=== PATIENT | female | born 1965 | race Caucasian/White ===

== ENCOUNTER 2019-11-08 17:52 | Emergency (ER) | payer OTHER ==
[2019-11-08 18:10] VITALS: BP 146/103; PULSE 68; TEMP 98.3; BMI 40.3
--- NOTE | 2019-11-08 18:10 | PDOC ---
Rapid Medical Evaluation Time Seen by Provider: 11/08/19 18:04 Medical Evaluation: Allergies Allergy/AdvReac Type Severity Reaction Status Date / Time No Known Drug Allergies Allergy Verified 11/08/19 18:04 11/08/19 18:04 Pt presents for swelling to the L side of her face for two days. She states she has pain in her L upper incisor and now she feels swelling and a ball under her L eye. Exam: induration noted to the L cheek. Obvious dental decay Orders: Nothing Pt to proceed to the ER evaluation Discharge Disposition - Diagnosis Pain, dental - Referrals - Patient Instructions - Post Discharge Activity
--- NOTE | 2019-11-08 18:32 | PDOC ---
History of Present Illness - General Chief Complaint: Toothache Stated Complaint: SWOLLEN FACE Time Seen by Provider: 11/08/19 18:04 - History of Present Illness Initial Comments: 11/08/19 18:30 54-year-old female denies comorbidities presents for evaluation of left-sided dental pain left upper anterior incisor x5 days no systemic symptoms Past History - Past Medical History Allergies/Adverse Reactions: Allergies Allergy/AdvReac Type Severity Reaction Status Date / Time No Known Drug Allergies Allergy Verified 11/08/19 18:04 Home Medications: Ambulatory Orders Albuterol Sulfate Inhaler - [Ventolin HFA Inhaler -] 1 - 2 inh IH BID 01/27/13 Budesonide/Formeterol Fumarate [SYMBICORT 160/4.5mcg -] 2 inh IH BID 01/27/13 Phenazopyridine HCl [Pyridium] 200 mg PO TID #6 tablet 05/25/13 Bupropion HCl [Wellbutrin -] 100 mg PO BID 08/07/16 Sertraline HCl [Zoloft] 100 mg PO AM 08/07/16 Amoxicillin - [Amoxicillin 500mg Capsule -] 500 mg PO TID #21 capsule 11/08/19 Asthma: Yes Cancer: Yes (BREAST CA RIGHT) COPD: Yes - Psycho Social/Smoking Cessation Hx Smoking Status: Yes Smoking History: Current every day smoker Have you smoked in the past 12 months: Yes Number of Cigarettes Smoked Daily: 2 Information on smoking cessation initiated: Yes 'Breaking Loose' booklet given: 01/27/13 Hx Alcohol Use: Yes Drug/Substance Use Hx: No Substance Use Type: None Review of Systems - Review of Systems Constitutional: No: Fever HEENTM: Yes: See HPI, Dental Problems *Physical Exam - Vital Signs Last Vital Signs Temp Pulse Resp BP Pulse Ox 98.3 F 68 18 146/103 H 97 11/08/19 18:04 11/08/19 18:04 11/08/19 18:04 11/08/19 18:04 11/08/19 18:04 - Physical Exam 11/08/19 18:30 Widespread dental decay left upper anterior incisor tooth is broken normal color and temperature of the gingiva without areas of fluctuance or erythema Medical Decision Making - Medical Decision Making 11/08/19 18:30 We will treat for pain in the emergency room follow-up with urgent care dental amoxicillin prescribed Discharge - Discharge Information Problems reviewed: Yes Clinical Impression/Diagnosis: Pain, dental Condition: Stable Disposition: HOME - Admission No - Additional Discharge Information Prescriptions: Amoxicillin - [Amoxicillin 500mg Capsule -] 500 mg PO TID #21 capsule - Follow up/Referral Referrals: Cameron Harris MD [Primary Care Provider] - [facility] [Outside] - Patient Discharge Instructions Additional Instructions: Please take the antibiotic as directed. Tylenol and Motrin as directed for pain. Without fail follow-up with urgent care dental either today or tomorrow. You do not need an appointment. Please take the antibiotics as directed and return to the emergency room should symptoms worsen. - Post Discharge Activity
== END 2019-11-08 18:32 | disposition home or self-care (01) ==
LOC: JERFT 17:52
DX: K08.89 Other specified disorders of teeth and supporting structures (principal); J44.9 Chronic obstructive pulmonary disease, unspecified; J45.998 Other asthma; Z85.3 Personal history of malignant neoplasm of breast; F17.210 Nicotine dependence, cigarettes, uncomplicated
CPT/HCPCS: 99283-25

== ENCOUNTER 2020-06-06 13:22 | Emergency (ER) | payer OTHER ==
[2020-06-06] MEDS ORDERED: ACETAMINOPHEN 1000 MG/100 ML VIAL (NON FORMULARY) IVPB ONE (13:29)
--- NOTE | 2020-06-06 13:33 | PDOC ---
Rapid Medical Evaluation Time Seen by Provider: 06/06/20 13:26 Medical Evaluation: Allergies Allergy/AdvReac Type Severity Reaction Status Date / Time No Known Drug Allergies Allergy Verified 11/08/19 18:04 06/06/20 13:31 CC: abd pain x 3 weeks , bloating, constipation, hx breast ca and diverticulosis, no other complaints except decreased solid intake Exam: lower abd tenderness, vss Plan: labs urine, ct Discharge Disposition - Diagnosis Abdominal pain - Referrals Referrals: Cameron Harris MD [Primary Care Provider] - - Patient Instructions - Post Discharge Activity
[2020-06-06] MEDS ORDERED: ACETAMINOPHEN INJECTION 100 ML IVPB ONE (14:02)
[2020-06-06 14:20] VITALS: TEMP 98.3; BMI 42.3
[2020-06-06 14:28] LABS: BASO % 1.2 % (0-2.0); HEMATOCRIT 46.1 % (32.4-45.2); HEMOGLOBIN 15.5 GM/dL (10.7-15.3); LYMPH % 19.7 % (8-40); MCH 30.6 pg (25.7-33.7); MCHC 33.6 g/dl (32.0-36.0); MEAN PLT VOLUME 10.5 fl (7.5-11.1); MONO % 7.3 % (3.8-10.2); NEUT % 70.8 % (42.8-82.8); PLATELET COUNT 194 K/MM3 (134-434); RBC 5.07 M/mm3 (3.60-5.2); RDW 13.6 % (11.6-15.6); WHITE BLOOD COUNT 12.5 K/mm3 (4.0-10.0)
[2020-06-06 14:29] LABS: PH,URINE 5.5 (5.0-8.0); URINE APPEARANCE CLEAR; URINE BILIRUBIN NEGATIVE (NEGATIVE); URINE COLOR YELLOW; URINE GLUCOSE (UA) NEGATIVE (NEGATIVE); URINE KETONE NEGATIVE (NEGATIVE); URINE LEUK ESTERASE NEGATIVE (NEGATIVE); URINE NITRITE NEGATIVE (NEGATIVE); URINE PROTEIN NEGATIVE (NEGATIVE)
--- NOTE | 2020-06-06 14:44 | PDOC ---
History of Present Illness - General Chief Complaint: Pain Stated Complaint: LOWER ABD PAIN,BLOATING Time Seen by Provider: 06/06/20 13:26 History Source: Patient, Old Records Exam Limitations: No Limitations - History of Present Illness Initial Comments: 06/06/20 14:39 Micheline Cherry is a 63F with PMH breast CA in remission since 2012 s/p chemo/R mastectomy, GERD, dental infections, diverticulitis, COPD, presenting with abdominal cramping and bloating. Has been feeling abdominal bloating and lower abdominal cramping for a week with intermittent nausea without vomiting and decreased PO intake. Tolerating PO, ate a few plates of poutine earlier this week. Daily omeprazole. Fever last night. No constipation, having BM, last today, non-bloody, no diarrhea, NBNB stools. Has had colonoscopy a few years ago with diverticula. Has had diverticulitis before with fever and diarrhea but did not get treated, says it went away on its own. No prior abd surgeries. Had tooth extraction last month, completed course of Abx that caused diarrhea that has since resolved. Diet of mostly soft spaghetti due to tooth sensitivity. Denies urinary symptoms. Denies chest pain, SOB, dizziness, weakness. Smokes 1 pack cigarettes every 2 days, no alcohol/drugs. NKDA. Past History - Medical History Allergies/Adverse Reactions: Allergies Allergy/AdvReac Type Severity Reaction Status Date / Time No Known Drug Allergies Allergy Verified 11/08/19 18:04 Home Medications: Ambulatory Orders Albuterol Sulfate Inhaler - [Ventolin HFA Inhaler -] 1 - 2 inh IH BID 01/27/13 Budesonide/Formeterol Fumarate [SYMBICORT 160/4.5mcg -] 2 inh IH BID 01/27/13 Phenazopyridine HCl [Pyridium] 200 mg PO TID #6 tablet 05/25/13 Bupropion HCl [Wellbutrin -] 100 mg PO BID 08/07/16 Sertraline HCl [Zoloft] 100 mg PO AM 08/07/16 Amoxicillin - [Amoxicillin 500mg Capsule -] 500 mg PO TID #21 capsule 11/08/19 Ciprofloxacin [Cipro -] 500 mg PO Q12H #14 tablet 06/06/20 metroNIDAZOLE [Flagyl -] 500 mg PO TID #21 tablet 09/16/20 Asthma: Yes Cancer: Yes (BREAST CA RIGHT) COPD: Yes - Reproductive History Is Patient Now?: No - Immunization History Immunization Up to Date: No - Psycho-Social/Smoking History Smoking Status: Yes Smoking History: Current every day smoker Have you smoked in the past 12 months: Yes Number of Cigarettes Smoked Daily: 8 Information on smoking cessation initiated: Yes 'Breaking Loose' booklet given: 01/27/13 - Substance Abuse Hx (Audit-C & DAST Scrn) How often the patient has a drink containing alcohol: Never Score: In Men: 4 or > Positive; In Women: 3 or > Positive: 0 Screen Result (Pos requires Nsg. Audit-10AR): Negative In the last yr the pt used illegal drug/Rx for NonMed reason: No Score: Yes response is considered Positive: 0 Screen Result (Positive result requires Nsg. DAST-10): Negative Review of Systems - Review of Systems Able to Perform ROS?: Yes Constitutional: Yes: Fever HEENTM: No: Symptoms Reported Respiratory: No: Cough, Shortness of Breath, SOB with Exertion, SOB at Rest, Stridor, Wheezing Cardiac (ROS): No: Chest Pain, Irregular Heart Rate, Lightheadedness, Palpitations, Syncope ABD/GI: Yes: Nausea, Poor Appetite, Abdominal cramping. No: Constipated, Monika rrhea, Poor Fluid Intake, Vomiting : No: Symptoms Reported Musculoskeletal: No: Symptoms Reported Integumentary: No: Symptoms Reported Neurological: No: Symptoms reported Endocrine: No: Symptoms Reported Hematologic/Lymphatic: No: Symptoms Reported All Other Systems: Reviewed and Negative *Physical Exam - Vital Signs Last Vital Signs Temp Pulse Resp BP Pulse Ox 98.3 F 87 20 139/73 98 06/06/20 14:00 06/06/20 14:00 06/06/20 14:00 06/06/20 14:00 06/06/20 14:00 - Physical Exam General Appearance: Yes: Nourished, Appropriately Dressed, Obese, Other (sitting up in bed in NAD, blue highlights in hair). No: Apparent Distress HEENT: positive: EOMI, ROSALVA, Pharynx Normal. negative: Scleral Icterus (R), Scleral Icterus (L), Pharyngeal Erythema, Tonsillar Exudate, Tonsillar Erythema Neck: positive: Trachea midline, Normal Thyroid, Supple. negative: Tender, Lymphadenopathy (R), Lymphadenopathy (L) Respiratory/Chest: positive: Wheezing, Other (s/p R mastectomy). negative: Chest Tender, Respiratory Distress, Accessory Muscle Use, Crackles, Rales, Rhonchi, Stridor Cardiovascular: positive: Regular Rhythm, Regular Rate. negative: Murmur, Tachycardia Gastrointestinal/Abdominal: positive: Normal Bowel Sounds, Soft, Protuberent. negative: Tender, Organomegaly, Pulsatile Mass, Distended, Guarding, Rebound, Hernia Musculoskeletal: positive: Normal Inspection. negative: CVA Tenderness, Decreased Range of Motion, Vertebral Tenderness Extremity: positive: Normal Capillary Refill, Normal Inspection, Normal Range of Motion, Pelvis Stable. negative: Tender, Pedal Edema, Swelling, Calf Tenderness Integumentary: positive: Normal Color, Dry, Warm. negative: Cold, Clammy Neurologic: positive: Fully Oriented, Alert, Normal Mood/Affect, Normal Response ED Treatment Course - LABORATORY CBC & Chemistry Diagram: 06/06/20 14:10 06/06/20 14:10 - ADDITIONAL ORDERS Additional order review: Laboratory Results 06/06/20 14:10 Urine Color Yellow Urine Appearance Clear Urine pH 5.5 Ur Specific White Owl 1.017 Urine Protein Negative Urine Glucose (UA) Negative Urine Ketones Negative Urine Blood Negative Urine Nitrite Negative Urine Bilirubin Negative Urine Urobilinogen 1.0 Ur Leukocyte Esterase Negative 06/06/20 14:10 RBC 5.07 MCV 91.0 MCHC 33.6 RDW 13.6 MPV 10.5 Neutrophils % 70.8 Lymphocytes % 19.7 D Monocytes % 7.3 Eosinophils % 1.0 Basophils % 1.2 - Medications Given in the ED: ED Medications Discontinued Medications Generic Name Dose Route Start Last Admin Trade Name Austinq PRN Reason Stop Dose Admin Acetaminophen 1,000 mg 06/06/20 13:29 06/06/20 14:10 Ofirmev Injection - IVPB 06/06/20 13:30 1,000 mg ONCE ONE Administration Medical Decision Making - Medical Decision Making 06/06/20 14:46 Patient here with abdominal cramping and bloating and fever with known diverticular disease, non-bloody stools but has never been treated or evaluated for diverticulitis before. VSS, exam benign, in NAD. Getting CMP/ CBC/lipase/ECG/CXR/UA/UC and CTAP with PO/IV contrast for eval diverticular disease. Ofirmev given for fever/pain, no nausea or vomiting at this time. 06/06/20 14:56 Labs notable for: - WBC 12.5 - UA WNL - K hemolyzed 5.2, ordering repeat and IVF 06/06/20 15:36 Pending CTAP for eval intra-abdominal pathology. 06/06/20 17:28 CTAP shows acute sigmoid diverticulitis. No allergies. Sending home on cipro and metronidazole. Can f/u with GI. Does not need to stay for repeat K, unconcerned regarding true hyperkalemia. Discharge - Discharge Information Problems reviewed: Yes Clinical Impression/Diagnosis: Sigmoid diverticulitis Abdominal pain Qualifiers: Abdominal location: lower abdomen, unspecified Qualified Code(s): R10.30 - Lower abdominal pain, unspecified Condition: Stable Disposition: HOME - Admission No - Additional Discharge Information Prescriptions: Ciprofloxacin [Cipro -] 500 mg PO Q12H #14 tablet metroNIDAZOLE [Flagyl -] 500 mg PO TID #21 tablet - Follow up/Referral Referrals: Cameron Harris MD [Non Staff, Medical] - Lokesh Franks MD [Staff Physician] - - Patient Discharge Instructions Patient Printed Discharge Instructions: DI for Diverticulitis Additional Instructions: Today we evaluated you for abdominal cramping. Your labs and CT scan show you have diverticulitis of your sigmoid colon. We are treating you with antibiotics that you need to take as instructed every day for the next 7 days. You should follow-up with your regular doctor, and a referral to a GI doctor has been gi nellie. If you experience worsening pain, diarrhea, vomiting, fever, or any other new or concerning symptoms, please return to the emergency room. - Post Discharge Activity
[2020-06-06 15:05] LABS: ALBUMIN 3.5 g/dl (3.4-5.0); BILIRUBIN,TOTAL 0.4 mg/dL (0.2-1); BLOOD UREA NITROGEN 17.6 mg/dL (7-18); CALCIUM 9.2 mg/dL (8.5-10.1); CREATININE 0.9 mg/dL (0.55-1.3); POTASSIUM 5.2 mmol/L (3.5-5.1); TOT PROT 7.3 g/dl (6.4-8.2)
--- NOTE | 2020-06-06 15:11 | PDOC ---
Documentation entered by Lucy Goddard SCRIBE, acting as scribe for Osiel Emery MD. Osiel Emery MD: This documentation has been prepared by the zoieibeRupesh Lincy, SCRIBE, under my direction and personally reviewed by me in its entirety. I confirm that the documentation accurately reflects all work, treatment, procedures, and medical decision making performed by me. Attending Attestation - Resident Resident Name: NovaDarian - ED Attending Attestation I have performed the following: I have examined & evaluated the patient, The case was reviewed & discussed with the resident, I agree w/resident's findings & plan, Exceptions are as noted - HPI HPI: 06/06/20 15:38 The patient is a 54 year old female with past medical history significant for Breast CA s/p R. Mastectomy, GERD, COPD and hx of diverticulitis who presents to the emergency department with lower abdominal cramping and bloating, associated with nausea for the past week. - Physicial Exam PE: 06/06/20 15:09 EXAMINATION CONSTITUTIONAL: Well-appearing; well-nourished; in no apparent distress HEAD: Normocephalic; atraumatic EYES: PERRL; EOM intact CARD: Normal S1, S2; no murmurs, rubs, or gallops RESP: Normal chest excursion with respiration; breath sounds clear and equal bilaterally; no wheezes, rhonchi, or rales ABD: Soft, non-distended; llq/periumbilical ttp; no palpable organomegaly, no palpable hernias EXT: Normal ROM in all four extremities; non-tender to palpation; distal pulses intact NEURO: No focal neurological deficiencies. - Medical Decision Making 06/06/20 15:10 54-year-old female with history of breast CA, diverticulosis presents with intermittent periumbilical and left lower quadrant abdominal pain, bloating, and constipation. Differential diagnosis includes colitis versus diverticulitis versus partial SBO. Will obtain CBC/CMP/UA. Will obtain CT of abdomen pelvis with p.o. contrast. Will reassess. Discharge - Discharge Information Problems reviewed: Yes Clinical Impression/Diagnosis: Abdominal pain Qualifiers: Abdominal location: lower abdomen, unspecified Qualified Code(s): R10.30 - Lower abdominal pain, unspecified Condition: Stable - Follow up/Referral Referrals: Cameron Harris MD [Non Staff, Medical] - - Patient Discharge Instructions - Post Discharge Activity
[2020-06-06] MEDS ORDERED: SODIUM CHLORIDE 0.9% 500 ML INFUS.BAG IV ONE (16:53)
[2020-06-06 18:01] VITALS: BP 0/0; PULSE 92
[2020-06-06 18:23] LABS: BLOOD UREA NITROGEN 17.6 mg/dL (7-18); CALCIUM 8.8 mg/dL (8.5-10.1); CREATININE 0.8 mg/dL (0.55-1.3); POTASSIUM 4.6 mmol/L (3.5-5.1)
== END 2020-06-06 18:01 | disposition home or self-care (01) ==
LOC: JER 13:22
PROC: 3E033NZ Introduction of Analgesics, Hypnotics, Sedatives into Peripheral Vein, Percutaneous Approach (ICD-10-PCS; principal; 2020-06-06)
DX: K57.20 Diverticulitis of large intestine with perforation and abscess without bleeding (principal)
CPT/HCPCS: 36415; 74177-TC; 80048; 80053; 81003; 83690; 83735; 85025; 87086; 87186; 99285-25; J0131; Q9967